=== PATIENT | female | born 1950 | race Caucasian/White ===

== ENCOUNTER 2018-05-12 11:53 | Outpatient (CLI) | payer MEDICARE ==
--- NOTE | 2018-05-12 16:37 | MRI ---
MRI LUMBAR SPINE WITHOUT CONTRAST: HISTORY: M48.062, lumbar stenosis with neurogenic claudication. COMPARISON: None. FINDINGS: Likely a prior right nephrectomy. T2 hyperintense foci of posterior cortex, interpolar left kidney. The aortic contour is nonaneurysmal. There is moderate bilateral symmetric paraspinal muscle atroph y. No marrow infiltrative process. The bones are osteopenic/osteoporotic. The conus medullaris terminates at the superior endplate of L1. Levels are as follows: L1-L2: Circumferential degenerative disk space height loss with right subforaminal and extraforamina l disk osteophyte complex. Mild facet arthrosis. Moderate right and mild left-sided neural foramina l narrowing with abutment of the exiting right nerve root. L2-L3: Severe degenerative disk space height loss. Circumferential disk osteophyte complex. Modera te facet arthropathy. The spinal canal is narrowed to approximately 6 mm. Moderate to severe left a nd mild right-sided neural foraminal narrowing with abutment of the left exiting and traversing nerve roots. L3-L4: Moderate facet arthropathy. There is anterolisthesis, approximately 3 mm. There is no signi ficant neural foraminal or spinal canal narrowing. L4-L5: Severe facet arthrosis. Grade 1 anterolisthesis, approximately 3 mm. There is a chronic dorothy ular tear of the posterior disk. Moderate facet arthropathy. No significant neural foraminal or spi nal canal narrowing. L5-S1: Moderate degenerative disk space height loss. There is an intradiskal cyst, posteriorly. Mi ld facet arthropathy. No neural foraminal or spinal canal narrowing. IMPRESSION: 1. Mild to moderate spondylosis, centered at L2-L3, which has neural foraminal and spinal canal narr owing. The remainder of the lumbar spine is without significant neural foraminal or spinal canal moises rowing. 2. Likely osteopenia/osteoporosis. 3. Prior right nephrectomy. 4. Bilateral symmetric moderate muscle atrophy. POS: [facility]
== END 2018-05-12 11:54 | disposition home or self-care (01) ==
LOC: SCSMRI 11:53
PROVIDERS: ATTEND Specialist
DX: M48.062 Spinal stenosis, lumbar region with neurogenic claudication (principal); M47.816 Spondylosis without myelopathy or radiculopathy, lumbar region; Z90.5 Acquired absence of kidney; M62.50 Muscle wasting and atrophy, not elsewhere classified, unspecified site
CPT/HCPCS: 72148

== ENCOUNTER 2020-04-12 16:14 | Inpatient (IN) | payer MEDICARE, OTHER ==
[~2020-04-12 16:14] MED LIST: Iopamidol-370 76% 500 ML 1 ML ONE
[2020-04-12 17:03] LABS: #Eosinphils 0.1 thou/uL (0.0-0.7); #Lymphocytes 1.8 thou/uL (1.20-3.40); #Monocytes 0.9 thou/uL (0.11-0.59); #Neutrophils 9.7 thou/uL (1.40-6.50); %Basophils 0.3 % (0.0-1.0); %Eosinophils 0.7 % (0.0-10.0); %Lymphocytes 14.1 % (21.0-51.0); %Monocytes 6.9 % (0.0-10.0); %Neutrophils 77.9 % (42.0-75.0); Hemoglobin 11.6 g/dL (12.0-16.0); Mean Corpuscular HGB CONC 32.2 g/dL (32.0-36.0); Mean Corpuscular Hemoglobin 29.4 pg (27.0-31.0); Mean Corpuscular Volume 91.4 fL (78.0-98.0); Mean Platelet Volume 7.1 fL (7.4-10.4); Platelet Count 393 thou/uL (130-400); Red Blood Cell (RBC) Count 3.95 mill/uL (4.20-5.40); White Blood Cell (WBC) Count 12.4 thou/uL (4.8-10.8)
[2020-04-12 17:23] LABS: ALT (SGPT) Less than 7 U/L (8-55); AST (SGOT) 13 U/L (5-34); Albumin 3.2 g/dL (3.4-4.8); Alkaline Phosphatase 122 U/L (40-110); Anion Gap 15 mmol/L (10-20); BUN (Urea Nitrogen) 32 mg/dL (9.8-20.1); Bilirubin, Total 0.3 mg/dL (0.2-1.2); CK (CPK) 45 U/L (29-168); Calc. Creatinine Clearance 0 mL/min (70-130); Calcium 8.9 mg/dL (7.8-10.44); Carbon Dioxide 22 mmol/L (23-31); Chloride 104 mmol/L (98-107); Estimated GFR-MDRD 42; Globulin 3.7 g/dL (2.4-3.5); Glucose 97 mg/dL (83-110); Lipase 37 U/L (8-78); Potassium 5.8 mmol/L (3.5-5.1); Protein, Total 6.9 g/dL (6.0-8.3); Sodium 135 mmol/L (136-145)
--- NOTE | 2020-04-12 17:45 | RAD ---
AP CHEST: 04/12/20 HISTORY: Dyspnea. COMPARISON: 07/20/19. Elevated right hemidiaphragm is stable. Lungs appear clear with no definite infiltrate. Heart is mild ly prominent but stable. Vascular markings upper normal and stable. IMPRESSION: No acute interval change. POS: [facility]
[2020-04-12] MEDS ORDERED: Aspirin Chewable 81 MG TAB ONE (17:51)
[2020-04-12] MEDS ORDERED: Digoxin 0.5 MG/2 ML AMP ONE (17:51)
[2020-04-12] MEDS ORDERED: Magnesium 2 GM/50 ML BAG (IN WATER) ONE (17:51)
[2020-04-12 18:24] LABS: INR-International Normal Ratio 1.1; PTT 38.6 sec (22.9-36.1); Prothrombin Time 14.7 sec (12.0-14.7)
[2020-04-12 18:26] LABS: D-Dimer Test 2.71 *mcg/mL (0.27-0.43)
[2020-04-12] MEDS ORDERED: Enoxaparin Sodium 80 MG/0.8 ML SYRINGE ONE (19:21)
[2020-04-12] MEDS ORDERED: Ondansetron PF 4 MG/2 ML Vial IVP PRN (20:20)
[2020-04-12] MEDS ORDERED: Ondansetron ODT 4 MG TAB PO PRN (20:20)
[2020-04-12] MEDS ORDERED: Acetaminophen 325 MG TAB PO PRN (20:20)
[2020-04-12 20:34] VITALS: BMI 26.6
[2020-04-12] MEDS ORDERED: Sodium Chloride 0.9% 1,000 ML IV SCH (20:45)
--- NOTE | 2020-04-12 21:13 | CT ---
CTA CHEST WITH CONTRAST: 04/12/20 Axial tomograms obtained following angio protocol with multiplanar reconstruction and 3D postprocessi ng. INDICATIONS: Tachycardia. Shortness of breath. FINDINGS: Pulmonary arteries demonstrate adequate enhancement. There is no evidence of pulmonary embolus. Thoracic aorta is unremarkable with no evidence of dissection. The lungs show no focal infiltrate. No effusion. Stranding in the lung bases is noted. Mediastinum sh ows nonspecific mediastinal lymph nodes. There is evidence of small pericardial effusion. Images through the upper abdomen show a large lateral abdominal wall hernia on the right with small a nd large bowel herniated through this lateral abdominal wall defect. No obstructive change. Osseous structures show prominent degenerative changes in the spine. The vertebral bodies maintain he ight. IMPRESSION: 1. No evidence of pulmonary embolus. 2. No acute lung process. 3. Small pericardial effusion. 4. A right lateral abdominal wall hernia in the upper right abdomen with small and large bowel l oops herniated through this defect into the subcutaneous tissues. POS: [facility]
[2020-04-12 21:27] LABS: Troponin I 0.014 ng/mL (< 0.028)
--- NOTE | 2020-04-12 22:02 | PDOC.FPRHP ---
- History of Present Illness Chief Complaint: SOB History of Present Illness: Patient is a 70 year old female with a history of HTN, OA, and macrocytic anemia 2/2 B12, folic acid deficiency who presents to the ED from [facility] with complains of SOB x this am. The patient reports a gradual onset of SOB, anxiety, lightheadedness and generalized weakness since this morning. She denies headache, vision changes, chest pain, palpitations, nausea, abdominal pain and diaphoresis. No history of cardiac arrhythmia in the past. Reports her symptoms have resolved after cardioversion for aflutter. ED Course: In the ED, patient found to be in aflutter with HR 160s. Dilt 0.5mg admini stered. Due to lack of improvement, patient was given amidate 10mg and cardioversion was performed with resulting NSR in 80s. Patient was also given therapeutic lovenox, aspirin 324mg, magnesium 50mg and 1L NS. - Allergies/Adverse Reactions Allergies Allergy/AdvReac Type Severity Reaction Status Date / Time amoxicillin [From Augmentin] Allergy Verified 09/07/19 06:02 oxaprozin [From Daypro] Allergy Verified 09/07/19 06:02 - Home Medications Medication Instructions Recorded Confirmed Type Acetaminophen [Tylenol] 650 mg PO Q6HR PRN 07/23/19 04/12/20 History Ondansetron [Zofran ODT] 8 mg PO Q8HR PRN 07/23/19 04/12/20 History Potassium Chloride [K-Dur] 20 meq PO DAILY 07/23/19 04/12/20 History Famotidine 20 mg PO BID #30 tab 08/03/19 04/12/20 Rx Loperamide HCl [Loperamide] 2 mg PO ASDIR PRN #30 capsule 08/03/19 04/12/20 Rx Sennosides/Docusate Sodium [Stool 2 each PO BID PRN #30 tablet 08/03/19 04/12/20 Rx Softener-Laxative Tablet] Thiamine 100 mg PO DAILY #30 tab 08/03/19 04/12/20 Rx risperiDONE [RisperDAL] 0.25 mg PO BID 04/12/20 04/12/20 History - History PMHx: HTN, OA, macrocytic anemia 2/2 B12 and folic acid deficiency, hx alochol abuse, chronic pain syndrome, dementia, hx tobacco abuse PSHx: Knee surgery bilaterally, hysterectomy FHx: Noncontributory Social: Quit smoking cigarettes 6 months ago, previously smoked 3-4ppd for 8 years, denies ETOH and drug use - Review of Systems General: denies: fever/chills, weight/appetite/sleep changes, fatigue Eyes: denies: eye pain, vision changes ENT: denies: nasal congestion, rhinorrhea Respiratory: denies: cough, congestion, shortness of breath Cardiovascular: denies: chest pain, palpitation, edema Gastrointestinal: denies: nausea, vomiting, abdominal pain Genitourinary: denies: dysuria, polyuria Skin: denies: rashes, jaundice Musculoskeletal: denies: pain, tenderness Neurological: denies: numbness, syncope, seizure, weakness Psychological: denies: anxiety, depression - Vital signs BP: [115/78] HR: [88] RR: [18] Tmax: [99F] Pox: [100]% on [RA] Wt: [74.8kg] - Physical Exam Constitutional: NAD, awake, alert and oriented HEENT: normocephalic and atraumatic, no scleral icterus, MMM Neck: FROM, trachea midline Chest: no-tender to palpation Heart: RRR, normal S1/S2, no murmurs/rubs/gallops, no edema Lungs: CTAB, no respiratory distress, good air movement Abdomen: soft, non-tender, bowel sounds present Musculoskeletal: normal structure, ROM grossly normal Neurological: no focal deficit -Neurological: A&O x 3 Skin: no rash/lesions Heme/Lymphatic: no unusual bruising or bleeding Psychiatric: normal mood and affect FMR H&P: Results - Labs Result Diagrams: 04/13/20 03:40 04/13/20 03:40 Lab results: WBC 12.4 thou/uL (4.8-10.8) H 04/12/20 16:53 Hgb 11.6 g/dL (12.0-16.0) L 04/12/20 16:53 Hct 36.1 % (36.0-47.0) 04/12/20 16:53 MCV 91.4 fL (78.0-98.0) 04/12/20 16:53 Plt Count 393 thou/uL (130-400) 04/12/20 16:53 Neutrophils % 77.9 % (42.0-75.0) H 04/12/20 16:53 Sodium 135 mmol/L (136-145) L 04/12/20 16:53 Potassium 5.8 mmol/L (3.5-5.1) H 04/12/20 16:53 Chloride 104 mmol/L (98-107) 04/12/20 16:53 Carbon Dioxide 22 mmol/L (23-31) L 04/12/20 16:53 BUN 32 mg/dL (9.8-20.1) H 04/12/20 16:53 Creatinine 1.26 mg/dL (0.6-1.1) H 04/12/20 16:53 Glucose 97 mg/dL (83-110) 04/12/20 16:53 Calcium 8.9 mg/dL (7.8-10.44) 04/12/20 16:53 Total Bilirubin 0.3 mg/dL (0.2-1.2) 04/12/20 16:53 AST 13 U/L (5-34) 04/12/20 16:53 ALT Less than 7 U/L (8-55) L 04/12/20 16:53 Alkaline Phosphatase 122 U/L (40-110) H 04/12/20 16:53 Creatine Kinase 45 U/L (29-168) 04/12/20 16:53 B-Natriuretic Peptide 389.4 pg/mL (0-100) H 04/12/20 16:53 Serum Total Protein 6.9 g/dL (6.0-8.3) 04/12/20 16:53 Albumin 3.2 g/dL (3.4-4.8) L 04/12/20 16:53 Lipase 37 U/L (8-78) 04/12/20 16:53 FMR H&P: A/P - Plan New onset aflutter s/p cardioversion, now resolved Reports symptom onset this am. EKG + aflutter with HR 156 in ED. Given diltiazem 0.5mg followed by successful cardioversion. HR now 80s. -Admit to tele inpatient for continuous monitoring -Given therapeutic lovenox in ED. Given NSR, order lovenox 40mg in am -TSH, mag, phos -Order echo. BNP elevated at 389. -Repeat CBC in am to investigate inflammatory vs. infectious cause of mild elevated WBC 12.4 -Cardiology consult in am Elevated D-dimer likely 2/2 CKD3 D-dimer 2.71 in ED. CTA Chest negative for pulmonary embolism -Bilateral LE US to r/o DVT given elevated d-dimer HTN -Not on daily medication per [place] MAR -Monitor vitals CKD3 Cr 1.26, at baseline -Avoid nephrotoxic medication Hyperkalemia -Likely 2/2 to CKD3. K 5.8 in ED Macrocytic anemia 2/2 B12 and folic acid deficiency -Hgb 11.6, MCV 91.4 in ED -On thiamine daily Osteoarthritis Chronic pain syndrome -Tylenol PRN for pain Dementia -Aware -Frequent orientation, raise blinds during day to prevent delirium -Continue risperidone Hx tobacco abuse Hx ETOH abuse -Denies current use -Encouraged continued abstinence PCP: Dr. Roberts Code: FULL DVT ppx: Lovenox Dispo: Admit to tele inpatient, expected LOS > 48 hours FMR H&P: Upper Level - Plan Date/Time: 04/12/202201 I, Sandie Thacker, have evaluated this patient and agree with findings/plan as outlined by supervisor international reservations resident. Pertinent changes/additions are listed here. 89 yo F presented to ED in atrial flutter. Was given dilt x1 without resolution. Rate was in 160s when she was cardioverted. Has been NSR since. History difficult to obtain from patient. She reports feeling SOB and not right today. Otherwise no complaints and reports feeling well now. PE: Gen: NAD HEENT: Moist MM Heart: RRR, no murmurs Lungs: CTAB, no wheezing. No increased work of breathing Abd: soft, nontender Ext: no cyanosis or edema Atrial fibrillation s/p cardioversion, now resolved - No known prior history of this - Consult cardiology in am - TSH wnl - Troponin indeterminate, likely due to demand from event - BNP 389, echo in am to evaluate for valvular dysfunction as well Elevated D-dimer - 2.71 on admission - CTA negative for PE, LE dopplers pending - VSS stable, no hypoxia, tachycardia Attending: Javier PCP: Armando Dispo: admit to telemetry inpatient Addendum - Attending - Attending Attestation Date/Time: 04/12/200 I personally evaluated the patient and discussed the management with resident team I agree with the History, Examination, Assessment and Plan documented above with any addition or exceptions noted below. 70 yo female admitted for symptomatic aflutter s/p cardioversion due to failed medication treatment. Admit to tele. Trend cardiac labs. Continue CV meds. Consult cards in AM along with EP. ECHO pending. Elevated d-dimer. No PE. Los suspicion for clot but due to lab finding and risk factors will rule out DVT. Carla martinez related to acute pre-renal hypoperfusion due to a flutter on top of CKD3 but unable to prove completely and therefore will rule out large VTEs. Joselo
[2020-04-12 23:04] LABS: Magnesium 2.3 mg/dL (1.6-2.6); Phosphorus 3.9 mg/dL (2.3-4.7)
[2020-04-12 23:10] LABS: Troponin I 0.026 ng/mL (< 0.028)
[2020-04-13] MEDS ORDERED: Senokot S 8.6-50 MG TAB PO PRN (00:04)
[2020-04-13] MEDS ORDERED: Loperamide HCl 2 MG CAP PO PRN (00:04)
[2020-04-13 04:25] LABS: #Basophils 0.1 thou/uL (0.0-0.2); #Eosinphils 0.2 thou/uL (0.0-0.7); #Lymphocytes 1.6 thou/uL (1.20-3.40); #Monocytes 0.9 thou/uL (0.11-0.59); #Neutrophils 9.3 thou/uL (1.40-6.50); %Basophils 0.5 % (0.0-1.0); %Eosinophils 1.4 % (0.0-10.0); %Lymphocytes 13.1 % (21.0-51.0); %Monocytes 7.7 % (0.0-10.0); %Neutrophils 77.2 % (42.0-75.0); Hemoglobin 9.7 g/dL (12.0-16.0); Mean Corpuscular HGB CONC 33.1 g/dL (32.0-36.0); Mean Corpuscular Hemoglobin 30.4 pg (27.0-31.0); Mean Corpuscular Volume 91.9 fL (78.0-98.0); Mean Platelet Volume 7.3 fL (7.4-10.4); Platelet Count 341 thou/uL (130-400); RBC Distribution Width 13.9 % (11.5-14.5); Red Blood Cell (RBC) Count 3.19 mill/uL (4.20-5.40); White Blood Cell (WBC) Count 12.1 thou/uL (4.8-10.8)
[2020-04-13 04:51] LABS: Anion Gap 12 mmol/L (10-20); BUN (Urea Nitrogen) 28 mg/dL (9.8-20.1); Calc. Creatinine Clearance 55 mL/min (70-130); Calcium 8.8 mg/dL (7.8-10.44); Carbon Dioxide 20 mmol/L (23-31); Chloride 107 mmol/L (98-107); Estimated GFR-MDRD 48; Glucose 102 mg/dL (83-110); Potassium 4.3 mmol/L (3.5-5.1); Sodium 135 mmol/L (136-145)
--- NOTE | 2020-04-13 06:29 | PDOC.FM ---
- Subjective Subjective: Pt awake, alert and pleasant to talk with. States she is unsure why she is in the hospital. Has no complaints of CP, abd pain, SOB, N/V, dysuria. - Objective Vital Signs & Weight: Vital Signs (12 hours) Temp Pulse Resp BP Pulse Ox 04/13/20 04:00 98.9 F 84 18 115/69 97 04/13/20 01:39 98 04/13/20 00:20 87 119/67 04/12/20 20:33 98.7 F 89 20 99/56 L 99 04/12/20 20:30 99 Weight Weight 74.843 kg Result Diagrams: 04/13/20 03:40 04/13/20 03:40 Phys Exam - Physical Examination Constitutional: NAD HEENT: moist MMs, sclera anicteric Neck: supple, full ROM Respiratory: no wheezing, clear to auscultation bilateral Cardiovascular: RRR, no significant murmur Gastrointestinal: soft, non-tender, no distention Musculoskeletal: no edema, pulses present Neurological: non-focal, moves all 4 limbs Psychiatric: normal affect, A&O x 3 Skin: no rash, cap refill <2 seconds Dx/Plan - Plan Plan: #New onset aflutter s/p cardioversion -resolved. tele NSR, rate in 70s-80s -Given therapeutic lovenox in ED. Now on ppx dose -TSH, mag, phos WNL. Trop neg x3 -BNP 389. Pending echo -continuous tele monitoring -Consult cardiology, Dr. Raymundo: appreciate recs #Elevated D-dimer likely 2/2 CKD3 -D-dimer 2.71. CTA Chest negative for pulmonary embolism -pending venogram #HTN -Not on daily medication per [place] MAR -Monitor vitals #CKD3 -Cr 1.11, GFR 48 at baseline -Avoid nephrotoxic medication as possible #Hyperkalemia -resolved #Macrocytic anemia 2/2 B12 and folic acid deficiency -Hgb 11.6, MCV 91.4 in ED -On thiamine daily #Osteoarthritis -Tylenol PRN for pain #Dementia -Aware -Frequent orientation, raise blinds during day to prevent delirium -Continue risperidone #Hx of tobacco/EtOH abuse -Denies current use -Encouraged continued abstinence PCP: Dr. Roberts Code: FULL DVT ppx: Lovenox Dispo: Admit to tele inpatient, expected LOS > 48 hours Addendum - Attending - Attending Attestation Date/Time: 04/13/20 [id number] I personally evaluated the patient and discussed the management with Dr. Solis. I agree with the History, Examination, Assessment and Plan documented above with any addition or exceptions noted below.
--- NOTE | 2020-04-13 06:32 | ULT ---
BILATERAL LOWER EXTREMITY VENOUS DUPLEX EXAM: Date: 04/12/2020 Deep veins of both lower extremities evaluated with ultrasound and Doppler with color Doppler and spe ctral analysis. INDICATION: Pain and edema FINDINGS: Deep veins of both lower extremities show normal blood flow and compression. No evidence of deep veno us thrombosis. IMPRESSION: Negative bilateral lower extremity venous duplex exam. POS: [facility]
[2020-04-13] MEDS ORDERED: Enoxaparin Sodium 40 MG/0.4 ML SYRINGE SC SCH (09:00)
[2020-04-13] MEDS: risperiDONE 0.25 MG TAB PO SCH ×2 (10:11→21:12)
[2020-04-13] MEDS: Potassium Chloride 20 MEQ TAB PO SCH (10:11)
[2020-04-13] MEDS: Famotidine 20 MG TAB PO SCH (10:11)
[2020-04-13] MEDS: Thiamine 100 MG TAB PO SCH (10:12)
--- NOTE | 2020-04-13 12:44 | CON ---
DATE OF CONSULTATION: 04/13/2020 HISTORY OF PRESENT ILLNESS: The patient is a 70-year-old female with past medical history of essential hypertension, hyperlipidemia, and early-onset dementia. The patient resides at [facility] in [place]. Yesterday morning, she started complaining of shortness of breath, which continued to worsen throughout the day. Staff noted that the patient had an elevated heart rate and subsequently transferred her here via EMS. On arrival, the patient was found to have a heart rate of 160. She received 0.5 mg of digoxin after being found with a rhythm of atrial flutter. The patient did not convert with this and subsequently received electrical cardioversion resulting in normal sinus rhythm. The patient remained stable while in the emergency department and was subsequently admitted to the telemetry floor for continued monitoring. On the ER, she also received a therapeutic dose of Lovenox. Upon discussion with the patient, the patient is aware that she was brought to the hospital for her shortness of breath. She is awake, alert, and oriented to person and place. However, has significant confusion regarding remote history and her past medical history. The patient denied having any specific chest pain with this event. She denies ever having similar episodes in the past. The patient denies ever having seen a teacher resource or having been told she has any heart problems aside from her high blood pressure. Telemetry review overnight showed that the patient remained in normal sinus rhythm. Blood pressures have remained stable. PAST MEDICAL HISTORY: Essential hypertension, hyperlipidemia, recurrent UTIs, right shoulder osteoarthritis, chronic pain syndrome, chronic anemia - history of macrocytosis, remote history of alcohol abuse. PAST SURGICAL HISTORY: Right nephrectomy in 1991, right shoulder hemiarthroplasty in 1995, hysterectomy in 1996, right total shoulder in 1997, total knee replacement in 2014. FAMILY HISTORY: Father history, unknown. Mother history of high blood pressure, heart disease, and stroke, in 70s. Brother with high blood pressure. SOCIAL HISTORY: Resident at [facility] in [place], . ALLERGIES: DAYPRO AND AUGMENTIN. HOME MEDICATIONS: 1. Zofran 8 mg p.o. q.8 hours p.r.n. 2. K-Dur 20 mEq daily. 3. Tylenol 650 mg p.o. q.6 hours p.r.n. 4. Famotidine 20 mg p.o. b.i.d. 5. Loperamide 2 mg p.o. as directed p.r.n. 6. Thiamine 100 mg daily. 7. Sennosides and docusate two tabs p.o. b.i.d. p.r.n. 8. Risperdal 0.25 mg p.o. b.i.d. REVIEW OF SYSTEMS: Twelve-point review of systems was negative upon review this morning. PHYSICAL EXAMINATION: VITAL SIGNS: Temperature 98.1, pulse 83, respiratory rate 16, oxygen saturation of 98% on room air, and blood pressure 130/63. GENERAL: Well-developed, well-nourished, white female, in no acute distress. HEENT: Normocephalic, atraumatic. Pupils are equal. Extraocular movements intact. NECK: Supple. Full range of motion. No JVD. CHEST: Regular rate and rhythm. Soft S1 and S2, no murmurs. LUNGS: Clear to auscultation bilaterally in all zamora. ABDOMEN: Soft, nontender, without organomegaly. Bowel sounds positive. EXTREMITIES: No cyanosis or edema. NEUROLOGIC: The patient is oriented to person and place but not time. She consistently reports history that is not congruent with previously reported history. Has significant disorientation to time. Was not aware that she resides at [facility]. LABS: WBC: 12.1, Hgb: 9.7, Troponin negative x3, Cr: 1.11 ASSESSMENT: 1. New-onset atrial flutter, status post electrical cardioversion and subsequent return to normal sinus rhythm. 2. Hypertension. 3. Hyperlipidemia. 4. Early-onset dementia. PLAN: We will start the patient on rate suppression medication with metoprolol 12.5 mg b.i.d. We will consult Electrophysiology, Dr. Rutledge, for assessment for possible subsequent ablative therapy. The patient will need to be on therapeutic anticoagulation for a CHADS-VASc score of 3 and presenting atrial flutter. We will hold this until Electrophysiology gives recommendations as to whether or not they will be performing an ablative procedure. We will continue to follow the patient during the remainder of the hospital stay. Job ID: [id number] [facility]
[2020-04-13 12:57] LABS: SARS-CoV-2 MS2 Positive; SARS-CoV-2 N Gene Negative; SARS-CoV-2 S Gene Negative; SARS-CoV-2 by NAA Not Detected (NotDetected); SARS-CoV-2 orf1ab Negative
--- NOTE | 2020-04-13 19:53 | CON ---
DATE OF CONSULTATION: 04/13/2020 HISTORY OF PRESENT ILLNESS: I am seeing Ms. 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 Her problems are; 1. Highly symptomatic typical appearing atrial flutter with rapid ventricular rate. a. Spontaneous conversion observed in the ER after dig administration back to sinus rhythm. 2. Early dementia. 3. History of hypertension. ALLERGIES: AMOXICILLIN AND OXAPROZIN. MEDICATIONS: At home included; 1. Zofran. 2. K-Dur. 3. Tylenol. 4. Famotidine. 5. Loperamide. 6. Thiamine. 7. Stool softener, laxative. 8. Risperdal. SUBJECTIVE: Ms. Schuster is here after progressive dyspnea developed and transfered from her senior care. She was fairly dyspneic and was found to be in atrial flutter with rapid rate. She received IV dig and she eventually converted back to sinus rhythm elective cardioversion. She has been feeling well since. She denies palpitations, dizziness, or loss of consciousness. No stroke-like symptoms. No neurological deficits. Denies angina-like discomfort. No bleeding issues. REVIEW OF SYSTEMS: Rest of 12-point system otherwise unremarkable. PAST HISTORY: As above. She has history of hypertension, hyperlipidemia, recurrent UTIs, right shoulder arthritis, chronic pain syndrome, chronic anemia, history of macrocytosis, remote history of alcohol abuse, and also early phase of dementia. SOCIAL HISTORY: She is admittedly and lives in a senior care. She denies smoking, EtOH, or drug abuse. FAMILY HISTORY: Significant for mother had history of hypertension, heart disease, and stroke, in 70s. Brother had high blood pressure. OBJECTIVE DATA: VTIAL SIGNS: Blood pressure is initially 116/72, heart rate 158, respiratory rate 17, temperature 99.3, oxygen saturation 98% on room air. Currently blood pressure is 121/62, heart rate 80, respirations 17, temperature 98.2 degrees Fahrenheit. GENERAL: Reveals an alert and oriented woman x1, in no apparent distress. NECK: Supple. Jugular veins not distended. CHEST: Coarse without crackles. CARDIAC: Heart sounds are regular to rate and rhythm. No murmur or gallop. ABDOMEN: Benign. Bowel sounds positive. EXTREMITIES: Lower extremities without edema, clubbing, or cyanosis. Pulses are adequate. NEUROLOGIC: The patient is nonfocal. MUSCULOSKELETAL: Without joint swelling or deformity. SKIN: Without rash. DATABASE: The EKG is reviewed. Initial EKG reveals atrial flutter with 2:1 AV conduction, appears to be typical isthmus dependent in morphology. Subsequent EKG reveals sinus rhythm with occasional PACs. Also, there is a rhythm strip showing electrical cardioversion. ASSESSMENT AND PLAN: Ms. Schuster is a pleasant 70-year-old woman with history of hypertension, prior hospitalization for urinary sepsis. She is now presenting with a newly found atrial flutter. The flutter was high symptomatic, requiring acute cardioversion, which was performed in the ER. Currently, she is maintaining sinus rhythm and is feeling much better. We briefly discussed the mechanism of atrial flutter. Risks, benefits, and procedure. Although, she has some baseline confusion, seems to be responding appropriately in understanding the procedure. She is interested in proceeding with the ablation therapy. We discussed the risk of infection, bleeding, pneumothorax, tamponade, device malfunction, and recalls. We will obtain consent and will schedule at near date. Monitor for recurrent atrial arrhythmias. Consider oral anticoagulation on discharge. 2D echo is pending. Above was also discussed over the phonje with Deborah Garce, her medical POA. Job ID: [id number] [facility]
[2020-04-13] MEDS ORDERED: FLU VACC QS2020-21(65YR UP)/PF 240 MCG/0.7 ML SYRINGE IM ONE (21:00)
[2020-04-13] MEDS: Metoprolol Tartrate 25 MG TAB PO SCH (21:11)
[2020-04-13] MEDS ORDERED: diphenhydrAMINE 25 MG CAP PO SCH (22:00)
[2020-04-14] MEDS: Melatonin 3 MG TAB PO PRN ×2 (01:54→23:52)
[2020-04-14 05:01] LABS: Anion Gap 15 mmol/L (10-20); BUN (Urea Nitrogen) 26 mg/dL (9.8-20.1); Calc. Creatinine Clearance 47 mL/min (70-130); Calcium 9.3 mg/dL (7.8-10.44); Carbon Dioxide 19 mmol/L (23-31); Chloride 104 mmol/L (98-107); Estimated GFR-MDRD 41; Glucose 106 mg/dL (83-110); Potassium 4.7 mmol/L (3.5-5.1); Sodium 133 mmol/L (136-145)
--- NOTE | 2020-04-14 05:53 | PDOC.FM ---
- Subjective Subjective: Pt agitated this morning. Was very confused stating she was in a motel and that it was night time and she wanted a pizza.A&Ox1. She is currently NPO for ablation later today with Dr. Rutledge. - Objective Vital Signs & Weight: Vital Signs (12 hours) Temp Pulse Resp BP Pulse Ox 04/14/20 03:44 97.6 F 77 18 119/56 L 98 04/13/20 19:50 99.3 F 95 18 162/82 H 98 Weight Admit Weight 74.843 kg Weight 74.134 kg Result Diagrams: 04/13/20 03:40 04/14/20 04:00 Phys Exam - Physical Examination Constitutional: NAD HEENT: moist MMs, sclera anicteric Neck: supple, full ROM Respiratory: no wheezing, clear to auscultation bilateral Cardiovascular: RRR, no significant murmur Gastrointestinal: soft, non-tender, no distention Musculoskeletal: no edema, pulses present Neurological: non-focal, moves all 4 limbs Psychiatric: normal affect Deviation from normal: A&O x1 Skin: no rash, cap refill <2 seconds Dx/Plan - Plan Plan: #New onset aflutter s/p cardioversion -resolved. tele NSR, rate in 70s-80s -consult cardiology, Dr Raymudno: started on metoprolol 12.5mg bid -consult EP, Dr Rutledge: plan is for ablation today, NPO -will need anticoagulation after procedure -Pending echo and UA -continuous tele monitoring #Elevated D-dimer likely 2/2 CKD3 -D-dimer 2.71. CTA Chest negative for pulmonary embolism -LE US: no DVT #HTN -Not on daily medication per [place] MAR -Monitor vitals #CKD3 -Cr 1.29, GFR 41 at baseline -Avoid nephrotoxic medication as possible #Hyperkalemia -resolved #Normocytic Anemia -likely anemia of chronic disease -Hgb 9.7, MCV 91.9 #Osteoarthritis -Tylenol PRN for pain #Dementia -Aware -Frequent orientation, raise blinds during day to prevent delirium -Continue risperidone #Hx of tobacco/EtOH abuse -Denies current use -Encourage continued abstinence PCP: Dr. Roberts Code: FULL DVT ppx: Lovenox (held) Diet: NPO Dispo: Admit to tele inpatient, plan for ablation today, Cardiology and EP consulted, expected LOS > 48 hours Addendum - Attending - Attending Attestation Date/Time: 04/14/20 8204 I personally evaluated the patient and discussed the management with Dr. Solis. I agree with the History, Examination, Assessment and Plan documented above with any addition or exceptions noted below. Patient stable. She is undergoing EP procedure today.
--- NOTE | 2020-04-14 05:56 | CON ---
DATE OF CONSULTATION: 04/13/2020 ADDENDUM: Please refer to the notes already dictated by the physician, Dr. Zavala. INDICATION FOR CONSULTATION: This is a 70-year-old female with new-onset atrial flutter. HISTORY OF PRESENT ILLNESS: This unfortunate 70-year-old female, had not been feeling well for several days. She has noticed that she became increasingly short of breath. She was brought to the emergency room, was found to be in atrial fibrillation with a heart rate in the 150s. She was given 1 dose of IV diltiazem at 0.5 mg and then converted to sinus rhythm. She has remained in sinus rhythm since that time. She had no significant EKG changes to indicate ischemia. The enzymes have remained unremarkable. She has had no previous cardiac history that she is aware of. She does have dementia and resides at a retirement. Otherwise, she has remained stable. She says she has lost some weight and just by physical examination it does look like she has lost some weight recently, but there have been no other significant abnormalities and she denies any cardiac history in the past. PAST MEDICAL HISTORY: Please refer to the notes already dictated by the Family Practice resident. SOCIAL HISTORY: Please refer to the notes already dictated by the Family Practice resident. FAMILY HISTORY: Please refer to the notes already dictated by the Family Practice resident. REVIEW OF SYSTEMS: Please refer to the notes already dictated by the Family Practice resident. ALLERGIES: PLEASE REFER TO THE NOTES ALREADY DICTATED BY THE FAMILY PRACTICE RESIDENT. MEDICATIONS: Please refer to the notes already dictated by the Family Practice resident. PHYSICAL EXAMINATION: Also will be evaluated by the resident. On my evaluation, she is a well-developed, well-nourished female, who has obvious evidence of previous surgeries on her shoulders. She has had bilateral shoulder replacements it appears and she has had some weight loss with some excess skin. Otherwise, she has no significant gross abnormalities noted on the physical examination. IMPRESSION AND PLAN: 1. Elderly female with new-onset atrial flutter, which has fortunately converted back to a sinus rhythm with only diltiazem. She has been placed on Lovenox for deep venous thrombosis prophylaxis, but no other significant medications and I would agree with the resident, we will need to start the patient on Eliquis if there is no plan to proceed with an atrial flutter ablation. If there is no ablation performed, then we will need to start her on Eliquis. Will need to be on some type of antiarrhythmics, so that she can maintain sinus rhythm most likely in the form of a beta jennie. We will initiate beta blockers today. 2. Dementia. She has some degree of dementia and this is one of the reasons she is in the retirement. 3. Some history of alcohol use in the past. She appears to be stable at this time and obviously has not been drinking any alcohol recently. Otherwise, we will continue to follow the patient with you, but we will await the recommendations from the history instructor, Dr. Rutledge. Job ID: [id number]
[2020-04-14] MEDS ORDERED: Heparin 10,000 UNITS/ 10 ML VIAL ONE (06:48)
[2020-04-14] MEDS ORDERED: Fentanyl 100 MCG/2 ML VIAL ONE (09:54)
[2020-04-14] MEDS ORDERED: Propofol 1,000 MG/100 ML VIAL IV ONE (09:54)
[2020-04-14] MEDS ORDERED: Ondansetron PF 4 MG/2 ML Vial ONE (10:25)
[2020-04-14] MEDS ORDERED: Dexamethasone 20 MG/5 ML VIAL ONE (10:25)
[2020-04-14] MEDS ORDERED: PHENYLEPHRINE-NS 100 MCG/ML 10 ML SYRINGE ONE (10:25)
[2020-04-14] MEDS ORDERED: Lidocaine 1% PF 5 ML VIAL ONE (10:25)
[2020-04-14] MEDS ORDERED: PROPOFOL 200 MG/20 ML VIAL ONE (10:25)
[2020-04-14] MEDS ORDERED: DOPamine 400 MG/D5W 250 ML 250 ML ONE (11:29)
--- NOTE | 2020-04-14 12:35 | OP ---
DATE OF PROCEDURE: 04/14/2020 PROCEDURE PERFORMED: Electrophysiology study and radiofrequency ablation. REASON FOR PROCEDURE: Ms. Schuster is a very pleasant 70-year-old woman with history of hypertension and mild dementia, who presented with severe dyspnea and rapid ventricular rate due to a 2:1 conducted atrial flutter. The EKG is suggestive of typical isthmus dependent morphology. She was emergently cardioverted due to hemodynamic instability. She is here for EP study and ablation procedure. DESCRIPTION OF PROCEDURE: The patient received deep sedation by Anesthesia specialist. After adequate level of sedation achieved, the right femoral venous area was prepped, draped, and anesthetized using subcutaneous lidocaine, and under ultrasound guidance, right femoral vein was cannulated x2, two 8-Macedonian short sheaths were introduced, through which a ThermoCool SFST catheter was advanced to the right atrium. 3D map of the right atrium, His bundle, CS, and cavotricuspid isthmus areas was detailed. Following that, a decapolar CS catheter was advanced to the CS position. Pacing, mapping, recording were performed in each location with the following findings. The baseline rhythm was sinus rhythm with cycle length of 760 milliseconds, AL 110 milliseconds, QRS 101 milliseconds, QT 400 milliseconds, AH 69 seconds, HV 43 milliseconds. AV Wenckebach cycle length was seen at 320 millisecond. Retrograde Wenckebach cycle length was noted at 410 millisecond. Concentric retrograde VA conduction was seen. The atrial extra stimuli testing yielded AV sydni ERP less than 600/240 milliseconds. No dual AV sydni physiology was present. Burst atrial pacing was performed, we were able to induce a transient typical appearing atrial flutter, but it was self terminated. Due to the typical appearance of the presenting atrial flutter on her EKG decision was made to perform a cavotricuspid isthmus ablation. During proximal CS pacing, cavotricuspid isthmus ablation was performed. A total of 3 minutes of radiofrequency energy delivered at 40 cramer on the cavotricuspid isthmus. We were able to prolong the cavotricuspid isthmus conduction time up to 150 milliseconds. Isthmus block was demonstrated by shortest transisthmus time just lateral to the ablation line. At this point, dopamine was introduced and the measurements were repeated, any reconnections re-ablated. On dopamine, no other atrial arrhythmias were inducible. At end of the case, cardiac silhouette did not change. The catheter was removed and Vascade closure was performed on both femoral venous access sites. The patient tolerated the procedure well. No complications noted. CONCLUSION: 1. Transient nonsustained typical appearing atrial flutter is seen, inducible. 2. Cavotricuspid isthmus ablation, achieving block on the cavotricuspid isthmus. 3. Normal AV sydni and His-Purkinje function. 4. No evidence of accessory pathway or dual AV sydni physiology is present. PLAN: Short-term anticoagulation. Monitor for recurrent arrhythmias. Job ID: [id number] [facility]
[2020-04-14] MEDS: Famotidine 20 MG TAB PO SCH (14:49)
[2020-04-14] MEDS: Metoprolol Tartrate 25 MG TAB PO SCH ×2 (14:50→20:36)
[2020-04-14] MEDS: risperiDONE 0.25 MG TAB PO SCH ×2 (14:50→20:36)
[2020-04-14] MEDS: Thiamine 100 MG TAB PO SCH (14:50)
[2020-04-14] MEDS: Potassium Chloride 20 MEQ TAB PO SCH (14:50)
[2020-04-14 19:21] LABS: Bacteria/HPF 4+ HPF (None Seen); Bilirubin Negative (Negative); Blood, Urine Negative (Negative); Clarity Turbid (Clear); Glucose, Urine (Dipstick) Normal (Negative); Ketone, Urine Negative (Negative); Leukocyte 500 Leu/uL (Negative); Nitrite 2+ (Negative); Protein, Urine (Dipstick) Negative (Neg-Trace); RBC/HPF 0-3 HPF (0-3); Specific Gravity, Urine 1.012 (1.002-1.036); Squamous Epithelial 0-3 HPF (0-3); Urobilinogen Normal mg/dL (Less than 2); WBC/HPF Greater than 50 HPF (0-3); pH, Urine 5.5 (5.0-9.0)
[2020-04-14] MEDS ORDERED: diphenhydrAMINE 50 MG CAP PO PRN (23:52)
[2020-04-15 04:47] LABS: Anion Gap 14 mmol/L (10-20); BUN (Urea Nitrogen) 33 mg/dL (9.8-20.1); Calc. Creatinine Clearance 43 mL/min (70-130); Calcium 9.3 mg/dL (7.8-10.44); Carbon Dioxide 22 mmol/L (23-31); Chloride 107 mmol/L (98-107); Estimated GFR-MDRD 37; Glucose 110 mg/dL (83-110); Sodium 138 mmol/L (136-145)
--- NOTE | 2020-04-15 05:26 | PDOC.FM ---
- Subjective Subjective: Pt awake, fully dressed and moving around the room this morning. Stated she was "cleaning her house and getting ready to go to the grocery store". A&Ox1. Denies any pain. Tolerating diet, voiding and ambulating well. - Objective Vital Signs & Weight: Vital Signs (12 hours) Temp Pulse Resp BP Pulse Ox 04/15/20 05:08 98.3 F 73 16 104/59 L 100 04/15/20 04:38 99 04/14/20 19:20 97.5 F L 88 16 107/53 L 100 Weight Admit Weight 74.843 kg Weight 74.134 kg I&O: 04/13/20 04/14/20 04/15/20 06:59 06:59 06:59 Intake Total 240 Balance 240 Result Diagrams: 04/15/20 05:53 04/15/20 03:55 Phys Exam - Physical Examination Constitutional: NAD HEENT: moist MMs, sclera anicteric Neck: supple, full ROM Respiratory: no wheezing, clear to auscultation bilateral Cardiovascular: RRR, no significant murmur Gastrointestinal: soft, non-tender, no distention Musculoskeletal: no edema, pulses present Neurological: non-focal, moves all 4 limbs Psychiatric: normal affect Deviation from normal: A&O x 1 Skin: no rash, cap refill <2 seconds Dx/Plan - Plan Plan: #New onset aflutter s/p ablation on 04/14 -consult cardiology, Dr Raymundo: started on metoprolol 12.5mg bid -consult EP, Dr Rutledge: ablation, will need short term anticoagulation -on eliquis -Pending echo read -continuous tele monitoring #UTI -UA positive for nitrite, leuk est and 4+bacteria -pending UCx -will treat w/ abx #Elevated D-dimer likely 2/2 CKD3 -D-dimer 2.71. CTA Chest negative for pulmonary embolism -LE US: no DVT #HTN -Not on daily medication per [place] MAR -Monitor vitals #CKD3 -Cr 1.29, GFR 41 at baseline -Avoid nephrotoxic medication as possible #Hyperkalemia -resolved #Normocytic Anemia -likely anemia of chronic disease -Hgb 9.7, MCV 91.9 #Osteoarthritis -Tylenol PRN for pain #Dementia -Aware -Frequent orientation, raise blinds during day to prevent delirium -Continue risperidone #Hx of tobacco/EtOH abuse -Denies current use -Encourage continued abstinence PCP: Dr. Roberts Code: FULL DVT ppx: elialice Diet: HH Dispo: Admit to tele inpatient, ablation on 04/14, pending cardiology and EP recs, expected LOS > 48 hours Addendum - Attending - Attending Attestation Date/Time: 04/15/20 9077 I personally evaluated the patient and discussed the management with Dr. Solis. I agree with the History, Examination, Assessment and Plan documented above with any addition or exceptions noted below. Patient pleasantly confused this morning. She is doing well s/p EP procedure. Awaiting further Cardiology/EP recs, but hopefully nearing stability for discharge.
[2020-04-15 06:23] LABS: #Basophils 0.1 thou/uL (0.0-0.2); #Lymphocytes 1.7 thou/uL (1.20-3.40); #Monocytes 0.5 thou/uL (0.11-0.59); #Neutrophils 6.3 thou/uL (1.40-6.50); %Basophils 0.7 % (0.0-1.0); %Eosinophils 0.4 % (0.0-10.0); %Neutrophils 72.9 % (42.0-75.0); Hemoglobin 10.1 g/dL (12.0-16.0); Mean Corpuscular HGB CONC 32.1 g/dL (32.0-36.0); Mean Corpuscular Hemoglobin 29.3 pg (27.0-31.0); Mean Corpuscular Volume 91.3 fL (78.0-98.0); Mean Platelet Volume 7.4 fL (7.4-10.4); Platelet Count 455 thou/uL (130-400); RBC Distribution Width 13.9 % (11.5-14.5); Red Blood Cell (RBC) Count 3.43 mill/uL (4.20-5.40); White Blood Cell (WBC) Count 8.7 thou/uL (4.8-10.8)
[2020-04-15] MEDS ORDERED: Fosfomycin 3 GM/Packet PO SCH (08:45)
[2020-04-15] MEDS ORDERED: Sulfameth/Trimethoprim DS 800-160mg TAB PO SCH (09:00)
[2020-04-15] MEDS ORDERED: Apixaban 5 MG TAB PO SCH (09:00)
[2020-04-15] MEDS: Metoprolol Tartrate 25 MG TAB PO SCH (09:12)
[2020-04-15] MEDS: Famotidine 20 MG TAB PO SCH (09:12)
[2020-04-15] MEDS: risperiDONE 0.25 MG TAB PO SCH (09:13)
[2020-04-15] MEDS: Thiamine 100 MG TAB PO SCH (09:13)
[2020-04-15] MEDS: Lactated Ringer's 1,000 ML IV SCH ×3 (09:14→16:33)
[2020-04-15] MEDS: Potassium Chloride 20 MEQ TAB PO SCH (09:18)
[2020-04-15] MEDS ORDERED: GENTAMICIN IVPB PRN (11:48)
[2020-04-15] MEDS ORDERED: Gentamicin 110 MG in Sodium Chloride 0.9% 100 ML IVPB SCH (12:00)
[2020-04-15 15:00] VITALS: BP 103/72; TEMP 98.7
--- NOTE | 2020-04-18 02:08 | DIS ---
DATE OF ADMISSION: 04/12/2020 DATE OF DISCHARGE: 04/15/2020 ADMITTING ATTENDING: Emily Herrera MD DISCHARGE ATTENDING: Mario Martin MD CONSULTS: Cardiology and Electrophysiology. PROCEDURES: Chest x-ray, no acute interval change. Chest, thorax CTA: Impression, no evidence of pulmonary embolus, no acute lung process, small pericardial effusion. Venogram: Impression, negative bilateral lower extremity DVT. Electrophysiology study and radiofrequency ablation. PRIMARY DIAGNOSIS: New onset atrial flutter. SECONDARY DIAGNOSES: 1. Urinary tract infection. 2. Elevated D-dimer. 3. Hypertension. 4. Chronic kidney disease 3. 5. Hyperkalemia. 6. Normocytic anemia. 7. Osteoarthritis. 8. Dementia. 9. History of tobacco and alcohol use. DISCHARGE MEDICATIONS: 1. Bactrim DS one tablet p.o. b.i.d. for 3 days. 2. Metoprolol tartrate 12.5 mg b.i.d. 3. Acetaminophen 650 mg q.6 hours p.r.n. 4. Eliquis 5 mg b.i.d. 5. Famotidine 20 mg b.i.d. 6. Loperamide 2 mg p.r.n. 7. Zofran 8 mg p.o. q.8 hours p.r.n. 8. Potassium chloride 20 mEq daily. 9. Risperidone 0.25 mg b.i.d. 10. Stool softener two tablets b.i.d. p.r.n. 11. Thiamine 100 mg daily. HISTORY OF PRESENT ILLNESS: A 70-year-old female with history of hypertension, OA, and macrocytic anemia, presented to the ED from [facility] with complaints of shortness of breath. Also complained of some lightheadedness and generalized weakness. On arrival to the ED, was found to be in atrial flutter with hemodynamic instability. Heart rate was in the 160s. Digoxin 0.5 mg administered with no resolution. The patient then electrically cardioverted in the ED resulting in normal sinus rhythm with heart rate in the 80s. Also given therapeutic Lovenox and aspirin in the ED. LABORATORY DATA: White count 12.4 and hemoglobin 11.6. D-dimer 2.71. Sodium 135, potassium 5.8, BUN 32, and creatinine 1.26. Troponin 0.02, 0.014, and 0.026. BNP 389. UA positive for nitrites, leukocyte esterase, and bacteria and COVID negative. Cardiology was consulted and recommended to start the patient on metoprolol 12.5 b.i.d. They then consulted Dr. Rutledge with Electrophysiology. He performed an ablation on 04/14/2020. Recommended followup outpatient. The patient was on continuous telemonitoring throughout her stay and remained in normal sinus rhythm with heart rate in the 70s to 80s. Elevated D-dimer 2.71. CTA chest done, results as above. Venous Doppler done, results as above. New onset atrial flutter, possibly due to infection. Found to have a UTI and started on Bactrim. culture grew E coli that was sensitive to Bactrim. Throughout hospital course, the patient was A and O x1, pleasantly demented. Experienced periods of delirium. Vital signs stable. The patient examined on day of discharge. DISPOSITION: Stable. DISCHARGE INSTRUCTIONS: 1. Location: [facility]. 2. Diet: Heart healthy. 3. Activity: As tolerated. 4. Followup: Follow up with PCP in [address] Raymundo, center receptionist as needed and Dr. Rutledge, EP, as needed. Job ID: [id number] [facility]
== END 2020-04-15 18:38 | DRG 274 ==
LOC: ERS 16:14 → 2NO 17:56
PROVIDERS: ADMIT Student in an Organized Health Care Education/Training Program; ATTEND Student in an Organized Health Care Education/Training Program
PROC: 5A2204Z Restoration of Cardiac Rhythm, Single (ICD-10-PCS; principal; 2020-04-14)
PROC: 02583ZZ Destruction of Conduction Mechanism, Percutaneous Approach (ICD-10-PCS; 2020-04-14)
DX: I48.92 Unspecified atrial flutter (principal); N39.0 Urinary tract infection, site not specified; F41.9 Anxiety disorder, unspecified; F32.9 Major depressive disorder, single episode, unspecified; M19.90 Unspecified osteoarthritis, unspecified site; D53.9 Nutritional anemia, unspecified; N18.30 Chronic kidney disease, stage 3 unspecified; E87.5 Hyperkalemia; F03.90 Unspecified dementia, unspecified severity, without behavioral disturbance, psychotic disturbance, mood disturbance, and anxiety; E78.5 Hyperlipidemia, unspecified; E53.8 Deficiency of other specified B group vitamins; G89.4 Chronic pain syndrome; I12.9 Hypertensive chronic kidney disease with stage 1 through stage 4 chronic kidney disease, or unspecified chronic kidney disease; D63.8 Anemia in other chronic diseases classified elsewhere; Z87.891 Personal history of nicotine dependence; Z88.1 Allergy status to other antibiotic agents; Z88.8 Allergy status to other drugs, medicaments and biological substances; Z79.899 Other long term (current) drug therapy; Z90.710 Acquired absence of both cervix and uterus
CPT/HCPCS: 36415; 71045; 71275; 76942; 80048; 80053; 81001; 82550; 83690; 83735; 83880; 84100; 84443; 84484; 85025; 85379; 85610; 85730; 87077; 87086; 87186; 87635; 93005; 93010; 93306; 93613; 93621; 93623; 93653; 93970; 96365; 96372; C1732; J1100; J1160; J1265; J1580; J1644; J1650; J2405; J2704; J3010; J3475; J3490; Q0163; Q9967; U0003